=== PATIENT | female | born 2000 | race Hispanic/Latino ===

== ENCOUNTER 2019-12-08 08:13 | Emergency (ER) | payer SELFPAY ==
[~2019-12-08] VITALS: Ht 157.5 cm; Wt 56.7 kg
[2019-12-08 09:04] LABS: BASOPHILS # (AUTO) 0.1 (0.0-0.1); BASOPHILS % 0.7 % (0.0-1.0); EOSINOPHILS # (AUTO) 0.1 (0.0-0.4); EOSINOPHILS % 1.2 % (0.0-6.0); HEMATOCRIT 38.1 % (34.2-44.1); HEMOGLOBIN 12.3 g/dL (12.0-16.0); LYMPHOCYTES # (AUTO) 1.9 (1.0-3.2); LYMPHOCYTES % 18.5 % (18.0-39.1); MEAN CORPUSCULAR HEMOGLOBIN 29.4 pg (28-32); MEAN CORPUSCULAR HGB CONC 32.3 g/dL (31-35); MEAN CORPUSCULAR VOLUME 91.1 fL (81-99); MONOCYTES # (AUTO) 0.6 (0.2-0.8); MONOCYTES % 5.6 % (4.4-11.3); NEUTROPHILS # (AUTO) 7.5 (2.1-6.9); NEUTROPHILS % 73.6 % (38.7-80.0); PLATELET COUNT 331 x10e3/uL (140-360); RED BLOOD COUNT 4.18 x10e6/uL (3.6-5.1); RED CELL DISTRIBUTION WIDTH 12.4 % (11.7-14.4)
[2019-12-08 09:07] LABS: CLARITY,URINE CLEAR (CLEAR); COLOR,URINE YELLOW (YELLOW); LEUKOCYTE ESTERASE ,URINE NEGATIVE (NEGATIVE); NITRITE,URINE NEGATIVE (NEGATIVE); PROTEIN,URINE DIPSTICK NEGATIVE (NEGATIVE)
[2019-12-08 09:08] LABS: BACTERIA,URINE RARE /HPF; BILIRUBIN,URINE NEGATIVE (NEGATIVE); EPITHELIAL CELLS,URINE FEW /LPF; KETONES,URINE NEGATIVE (NEGATIVE); PREGNANCY TEST, URINE NEGATIVE (NEGATIVE); RBC,URINE 0-5 /HPF (0-5); URINE UROBILINOGEN 0.2 mg/dL (0.2 - 1); WBC,URINE (MAN) 0-5 /HPF (0-5)
[2019-12-08 09:39] LABS: ALANINE AMINOTRANSFERASE 13 IU/L (0-55); ALBUMIN 3.8 g/dL (3.5-5.0); ALKALINE PHOSPHATASE 88 IU/L (40-150); BLOOD UREA NITROGEN 13 mg/dL (7-26); BUN/CREATININE RATIO 19 (6-25); CALCIUM 9.5 mg/dL (8.4-10.2); CARBON DIOXIDE 26 mmol/L (22-29); CHLORIDE 103 mmol/L (98-107); CREATININE, SERUM 0.67 mg/dL (0.57-1.11); EST GLOMERULAR FILTRATION RATE > 60 ML/MIN (60-); GLUCOSE 96 mg/dL (74-118); SODIUM 136 mmol/L (136-145)
[2019-12-08] MEDS ORDERED: IOPAMIDOL 370 MG/ML 200 ML INFUS..BTL INJ ONE (10:45)
[2019-12-08] MEDS ORDERED: SODIUM CHLORIDE 0.9% 50ML 50 ML ONE (10:45)
--- NOTE | 2019-12-08 11:15 | Diagnostic Imaging Report ---
EXAM: CT Abdomen and Pelvis WITH intravenous contrast INDICATION: Right abdominal pain COMPARISON: None. TECHNIQUE: Abdomen and pelvis were scanned utilizing a multidetector helical scanner from the lung base to the pubic symphysis after administration of IV contrast. Coronal and sagittal reformations were obtained. Routine protocol was performed. Scan was performed during portal venous phase. IV CONTRAST: 100mL of Isovue 370 ORAL CONTRAST: Water RADIATION DOSE: Total DLP: 246 mGy*cm Dose modulation, iterative reconstruction, and/or weight based adjustment of the mA/kV was utilized to reduce the radiation dose to as low as reasonably achievable. FINDINGS: LOWER THORAX: Normal. HEPATOBILIARY: No focal hepatic lesions. No biliary ductal dilatation. The gallbladder appears unremarkable. SPLEEN: No splenomegaly. PANCREAS: No focal masses or ductal dilatation. ADRENALS: No adrenal nodules. KIDNEYS/URETERS: No hydronephrosis, stones, or solid mass lesions. PELVIC ORGANS/BLADDER: Unremarkable. PERITONEUM / RETROPERITONEUM: No free air or fluid. LYMPH NODES: No lymphadenopathy. VESSELS: Unremarkable. GI TRACT: No distention or wall thickening. Status post appendectomy. BONES AND SOFT TISSUES: Unremarkable. IMPRESSION: No acute findings in the abdomen or pelvis. Specifically, no evidence of appendicitis because the appendix has previously been removed. Signed by: Darnell Trinh MD on 12/08/2019 11:12 AM
[2019-12-08 11:39] VITALS: BP 106/62
== END 2019-12-08 11:54 | disposition home or self-care (01) ==
LOC: ER 08:13
DX: R10.11 Right upper quadrant pain (principal); R10.13 Epigastric pain
CPT/HCPCS: 36415; 74177; 80053; 81001; 81025; 85025; 99284; Q9967

== ENCOUNTER 2020-01-16 20:07 | Emergency (ER) | payer OTHER ==
[~2020-01-16] VITALS: Ht 149.9 cm; Wt 54.4 kg
--- OUTSIDE RECORDS SUMMARY | 2020-01-16 20:09 | XMS REPORT ---
[facility] Address Unknown Phone Unavailable Care Team Providers Care Transmitter Engineer Name Role Phone Charles CUEVAS Unavailable Unavailable Problems This patient has no known problems. Allergies, Adverse Reactions, Alerts This patient has no known allergies or adverse reactions. Medications This patient has no known medications. Encounters Start Date/Time End Date/Time Encounter Type Admission Type Attending Clinicians Care Facility Care Department Encounter ID 2019-12-10 00:58:00 Inpatient U [facility] MED [id number] 2019-12-04 16:45:00 2019-12-04 16:45:00 Emergency E [facility] [id number] Results Test Description Test Time Test Comments Text Results Atomic Results Result Comments CT ABDOMEN/PELVIS W 2019-12-08 10:57:00 [place] [address] Patient Name: RASHAWN MCNEIL MR #: [id number] : 2000 Age/Sex: 19/F Req #: [id number] Adm Physician: Ordered by: JENIFER CUEVAS MD Report #: [id number] Location: ER Room/Bed: Procedure: [id number] CT/CT ABDOMEN/PELVIS W Exam Date: 12/08/19 Exam Time: 1015 REPORT STATUS: Signed EXAM: CT Abdomen and Pelvis WITH intravenous contrast INDICATION: Right abdominal pain COMPARISON: None. TECHNIQUE: Abdomen and pelvis were scanned utilizing a multidetector helical scanner from the lung base to the pubic symphysis after administration of IV contrast. Coronal and sagittal reformations were obtained. Routine protocol was performed. Scan was performed during portal venous phase. IV CONTRAST: 100mL of Isovue 370 ORAL CONTRAST: Water RADIATION DOSE: Total DLP: 246 mGy*cm Dose modulation, iterative reconstruction, and/or weight based adjustment of the mA/kV was utilized to reduce the radiation dose to as low as reasonably achievable. FINDINGS: LOWER THORAX: Normal. HEPATOBILIARY: No focal hepatic lesions. No biliary ductal dilatation. The gallbladder appears unremarkable. SPLEEN: No splenomegaly. PANCREAS: No focal masses or ductal dilatation. ADRENALS: No adrenal nodules. KIDNEYS/URETERS: No hydronephrosis, stones, or solid mass lesions. PELVIC O RGANS/BLADDER: Unremarkable. PERITONEUM / RETROPERITONEUM: No free air or fluid. LYMPH NODES: No lymphadenopathy. VESSELS: Unremarkable. GI TRACT: No distention or wall thickening. Status post appendectomy. BONES AND SOFT TISSUES: Unremarkable. IMPRESSION: No acute findings in the abdomen or pelvis. Specifically, no evidence of appendicitis because the appendix has previously been removed. Signed by: Harris Trinh MD on 12/08/2019 11:12 AM Dictated By: HARRIS TRINH MD 111 Transcribed By: KARINA on 12/08/191111 COPY TO: JENIFER CUEVAS MD
== END 2020-01-16 20:25 | disposition home or self-care (01) ==
LOC: ER 20:07
DX: R05 Cough (principal); B34.9 Viral infection, unspecified
CPT/HCPCS: 99282

== ENCOUNTER 2021-12-04 10:13 | Emergency (ER) | payer OTHER ==
[~2021-12-04] VITALS: Ht 149.9 cm; Wt 54.4 kg
[2021-12-04] MEDS ORDERED: PENICILLIN V P500 MG PO (11:14)
[2021-12-04] MEDS ORDERED: DECADRON4 M1 PO (11:14)
== END 2021-12-04 11:40 | disposition home or self-care (01) ==
LOC: ER 10:16
DX: R05.9 Cough, unspecified (principal); J02.0 Streptococcal pharyngitis
CPT/HCPCS: 83518; 99283